=== PATIENT | female | born 1970 | race Caucasian/White ===

== ENCOUNTER 2017-03-13 02:07 | Emergency (ER) | payer OTHER ==
[2017-03-13 02:20] VITALS: BMI 34.7
--- NOTE | 2017-03-13 04:30 | DR.GENAD ---
HPI - PCP Primary Care Physician: CALISTA - Complaint/Symptoms Chief Complaint Doctors Comments: patient admits to nausea and vomiting for 3 days. She denies fever Chief Complaint:: COUGHING, PAIN IN BACK ON INSPIRATION, - Source History Provided: Patient - Mode of Arrival Mode of Arrival: Ambulatory - Timing Onset of Chief Complaint: 03/11/17 PMH - PMH Past Medical History: Yes Past Medical History: Arthritis, Asthma, GERD Past Surgical History: Yes Surgical History: Appendectomy, Cholecystectomy, Hysterectomy - Family History History of Family Medical Conditions: No - Social History Does patient currently use any type of tobacco product: No Have you used tobacco products in the last 12 months: No Type of Tobacco Use: None Does any household member use tobacco: No Alcohol Use: None Do you use any recreational Drugs:: No Lives With: Spouse Lives Where: Home - infectious screening In the last 2 months have you had wt loss of >10#?: NO Have you had fever, night sweats or hemotysis?: No Have you traveled outside the country in the last 6 months?: No Isolation: Standard ROS - Review of Systems Eyes: No Symptoms Reported ENTM: No Symptoms Reported Respiratoy: No Symptoms Reported Cardiovascular: No Symptoms Reported Gastrointestinal/Abdominal: No Symptoms Reported Genitourinary: No Symptoms Reported Neurological: No Symptoms Reported Musculoskeletal: No Symptoms Reported Integumentary: No Symptoms Reported Hematologic/Lymphatic: No Symptoms Reported Endocrine: No Symptoms Reported Psychiatric: No Symptoms Reported All Other Systems: Reviewed and Negative PE - Vital Signs Vitals: Temperature 97.9 F Pulse Rate 102 Respiratory Rate 18 O2 Sat by Pulse Oximetry 98 - General General Appearance: Alert, In No Apparent Distress - Head Head Exam: Normal Inspection, Atraumatic - Eyes Eye exam: Normal Appearance, PERRL, EOMI - ENT ENT Exam: Normal Exam External Ear Exam: Normal External Inspection TM/Canal Exam: Bilateral Normal Nose Exam: Normal Nose Exam Mouth Exam: Normal Inspection Throat Exam: Normal Inspection - Neck Neck Exam: Normal Inspection - Chest Chest Inspection: Normal Inspection - Respiratory Respiratory Exam: Normal Lung Sounds Bilat Respiratory Exam: Bilateral Clear to Auscultation - Cardiovascular Cardiovascular Exam: Regular Rate, Normal Rhythm - Abdominal Exam Abdominal Exam: Tenderness Abdominal Tenderness: Suprapubic - Extremities Extremities Exam: Normal Inspection, Full ROM - Back Back Exam: Normal Inspection, Full ROM - Neurologic Neurological Exam: Alert, Oriented X3, CN II-XII Intact - Psychiatric Psychiatric Exam: Normal Affect - Skin Skin Exam: Warm, Dry, Intact Course - Reevaluation 1st: Improved ROR - Labs Reviewed Laboratory Results Reviewed?: Yes (H Pylori positive) Result Diagrams: 03/13/17 04:40 03/13/17 04:40 Laboratory: WBC 13.2 X10^3/uL (3.6-10.0) H 03/13/17 04:40 RBC 3.80 X10^6/uL (3.5-5.4) 03/13/17 04:40 Hgb 11.7 g/dL (12.0-16.0) L 03/13/17 04:40 Hct 34.7 % (36.0-47.0) L 03/13/17 04:40 MCV 91.4 fL (80.0-100.0) 03/13/17 04:40 MCH 30.8 pg (27.0-34.0) 03/13/17 04:40 MCHC 33.7 g/dL (33.0-35.0) 03/13/17 04:40 RDW 13.4 % (11.6-16.5) 03/13/17 04:40 Plt Count 403 X10^3/uL (150.0-450.0) 03/13/17 04:40 MPV 8.5 fL (7.4-11.0) 03/13/17 04:40 Neut % 80.3 % (42.0-75.0) H 03/13/17 04:40 Lymph % 10.2 % (21.0-51.0) L 03/13/17 04:40 Y[place]y % 8.2 % (0.0-13.0) 03/13/17 04:40 Eos % 0.6 % (0.9-2.9) L 03/13/17 04:40 Baso % 0.7 % (0.2-1.0) 03/13/17 04:40 Neut # 10.6 x10^3/uL (2.2-4.8) H 03/13/17 04:40 Lymph # 1.3 X10^3/uL (1.3-2.9) 03/13/17 04:40 Y[place]y # 1.1 x10^3/uL (0.3-0.8) H 03/13/17 04:40 Eos # 0.1 x10^3/uL (0.0-0.2) 03/13/17 04:40 Baso # 0.1 X10^3/uL (0.0-0.1) 03/13/17 04:40 Absolute Nucleated RBC 0.0 /100WBC 03/13/17 04:40 Sodium 136 mmol/L (136-145) 03/13/17 04:40 Corrected Sodium TNP 03/13/17 04:40 Potassium 3.9 mmol/L (3.5-5.1) 03/13/17 04:40 Chloride 103 mmol/L (98-107) 03/13/17 04:40 Carbon Dioxide 22.7 mmol/L (21-32) 03/13/17 04:40 BUN 5 mg/dL (7-18) L 03/13/17 04:40 Creatinine 0.76 mg/dL (0.55-1.02) 03/13/17 04:40 Est GFR (MDRD) Af Amer > 60 (>60) 03/13/17 04:40 Est GFR (MDRD) Non-Af > 60 (>60) 03/13/17 04:40 Glucose 82 mg/dL (65-99) 03/13/17 04:40 Calcium 8.5 mg/dL (8.5-10.1) 03/13/17 04:40 Corrected Calcium 9.5 mg/dL (8.5-10.1) 03/13/17 04:40 Total Bilirubin 0.20 mg/dL (0.2-1.0) 03/13/17 04:40 AST 19 Units/L (15-37) 03/13/17 04:40 ALT 15 Units/L (12-78) 03/13/17 04:40 Alkaline Phosphatase 94 Units/L (46-116) 03/13/17 04:40 C-Reactive Protein 52.80 mg/L (0-3.0) H 03/13/17 04:40 Total Protein 7.6 g/dL (6.4-8.2) 03/13/17 04:40 Albumin 2.8 g/dL (3.4-5.0) L 03/13/17 04:40 Globulin 4.8 g/dL (2.5-4.5) H 03/13/17 04:40 Albumin/Globulin Ratio 0.6 Ratio (1.1-2.1) L 03/13/17 04:40 Amylase 24 Units/L (25-115) L 03/13/17 04:40 Lipase 59 Units/L (73-393) L 03/13/17 04:40 Specimen Type Catherized urine 03/13/17 05:55 Urine Color Yellow (YELLOW) 03/13/17 05:55 Urine Appearance Clear (CLEAR) 03/13/17 05:55 Urine pH 7.0 (5.0 - 8.0) 03/13/17 05:55 Ur Specific [place] 1.005 (1.000-1.030) 03/13/17 05:55 Urine Protein Negative (NEGATIVE) 03/13/17 05:55 Urine Glucose (UA) Negative (NEGATIVE) 03/13/17 05:55 Urine Ketones Negative (NEGATIVE) 03/13/17 05:55 Urine Occult Blood Negative (NEGATIVE) 03/13/17 05:55 Urine Nitrite Negative (NEGATIVE) 03/13/17 05:55 Urine Bilirubin Negative (NEGATIVE) 03/13/17 05:55 Urine Urobilinogen Normal (NORMAL) 03/13/17 05:55 Ur Leukocyte Esterase Negative (NEGATIVE) 03/13/17 05:55 Urine RBC 0-3 /HPF (NEGATIVE) 03/13/17 05:55 Urine WBC 0-3 /HPF (NEGATIVE) 03/13/17 05:55 Ur Squamous Epith Cells Rare /HPF (NEGATIVE) 03/13/17 05:55 Urine Bacteria Negative /HPF (NEGATIVE) 03/13/17 05:55 Ur Culture Indicated? No/not indicated 03/13/17 05:55 H. pylori IgG Antibody Positive (NEGATIVE) A 03/13/17 04:40 - Diagnosis Discharge Problem: Helicobacter pylori gastritis - Discharge Plan Condition: Stable - Follow ups/Referrals Follow ups/Referrals: ANATOLIY GRIGSBY [Primary Care Provider] - 3 days - Instructions
[2017-03-13] MEDS ORDERED: PHENERGAN INJ 25 MG IV ONE (04:32)
[2017-03-13] MEDS ORDERED: TORADOL 30 MG VIAL IVP ONE (04:34)
[2017-03-13] MEDS ORDERED: PHENERGAN INJ 25 MG ONE (04:35)
[2017-03-13] MEDS ORDERED: TORADOL 30 MG VIAL ONE (04:36)
[2017-03-13 04:54] LABS: BASOPHILS # (AUTO) 0.1 X10^3/uL (0.0-0.1); BASOPHILS % (AUTO) 0.7 % (0.2-1.0); EOSINOPHILS # (AUTO) 0.1 x10^3/uL (0.0-0.2); EOSINOPHILS % (AUTO) 0.6 % (0.9-2.9); HEMATOCRIT 34.7 % (36.0-47.0); HEMOGLOBIN 11.7 g/dL (12.0-16.0); LYMPHOCYTES # (AUTO) 1.3 X10^3/uL (1.3-2.9); LYMPHOCYTES % (AUTO) 10.2 % (21.0-51.0); MEAN CORPUSCULAR HEMOGLOBIN 30.8 pg (27.0-34.0); MEAN CORPUSCULAR HGB CONC 33.7 g/dL (33.0-35.0); MEAN CORPUSCULAR VOLUME 91.4 fL (80.0-100.0); MEAN PLATELET VOLUME 8.5 fL (7.4-11.0); MONOCYTES # (AUTO) 1.1 x10^3/uL (0.3-0.8); MONOCYTES % (AUTO) 8.2 % (0.0-13.0); NEUTROPHILS # (AUTO) 10.6 x10^3/uL (2.2-4.8); NEUTROPHILS % (AUTO) 80.3 % (42.0-75.0); PLATELET COUNT 403 X10^3/uL (150.0-450.0); RED CELL DISTRIBUTION WIDTH 13.4 % (11.6-16.5); WHITE BLOOD COUNT 13.2 X10^3/uL (3.6-10.0)
[2017-03-13 05:07] LABS: ALANINE AMINOTRANSFERASE 15 Units/L (12-78); ALBUMIN 2.8 g/dL (3.4-5.0); ALKALINE PHOSPHATASE 94 Units/L (46-116); AMYLASE 24 Units/L (25-115); ASPARTATE AMINO TRANSFERASE 19 Units/L (15-37); BLOOD UREA NITROGEN 5 mg/dL (7-18); CALCIUM 8.5 mg/dL (8.5-10.1); CARBON DIOXIDE 22.7 mmol/L (21-32); CHLORIDE 103 mmol/L (98-107); COR CA(FOR HYPOALB) 9.5 mg/dL (8.5-10.1); CREATININE 0.76 mg/dL (0.55-1.02); GLUCOSE 82 mg/dL (65-99); LIPASE 59 Units/L (73-393); SODIUM 136 mmol/L (136-145); TOTAL PROTEIN 7.6 g/dL (6.4-8.2); eGFR BLACK RACES > 60 (>60); eGFR NON BLACK RACES > 60 (>60)
--- NOTE | 2017-03-13 06:05 | RAD ---
HISTORY: Stomach pain, vomiting, chest pain Study: Acute abdominal series Comparison: No priors Findings: The trachea is midline. The cardiac silhouette is unremarkable. There is a focus of atelectasis or infiltrate present involving the medial basal segment of the right lower lobe. Remainder of lung fi elds are clear. There are old posttraumatic appearing changes present with fractures involving the l eft anterior 2nd and 3rd ribs which appear healed. . Flat plate and upright evaluation of the abdomen demonstrates a increased amount of stool present th roughout the colon. No bowel obstruction or perforation is seen. There is no evidence of free intrap eritoneal air or fluid. There are surgical clips from cholecystectomy.. No pathological soft tissue mass or calcification can be observed. The bony structures are grossly intact. IMPRESSION: 1. Small focus of atelectasis or infiltrate present in the medial basal segment of the right lower lobe. 2. No evidence for acute abdominal pathology identified. O Reported By:
[2017-03-13 06:10] LABS: BILIRUBIN,URINE NEGATIVE (NEGATIVE); BLOOD/HEMOGLOBIN,URINE NEGATIVE (NEGATIVE); GLUCOSE, URINE NEGATIVE (NEGATIVE); KETONES,URINE NEGATIVE (NEGATIVE); LEUKOCYTE ESTERASE ,URINE NEGATIVE (NEGATIVE); NITRITES,URINE NEGATIVE (NEGATIVE); PROTEIN,URINE NEGATIVE (NEGATIVE); UROBILINOGEN,URINE NORMAL (NORMAL)
[2017-03-13 06:18] LABS: APPEARANCE,URINE CLEAR (CLEAR); COLOR,URINE YELLOW (YELLOW)
[2017-03-13 06:19] LABS: BACTERIA,URINE NEGATIVE /HPF (NEGATIVE); RBC,URINE 0-3 /HPF (NEGATIVE); SQUAMOUS EPITHELIAL CELL,UR RARE /HPF (NEGATIVE)
== END 2017-03-13 07:31 | disposition home or self-care (01) ==
LOC: ER 02:07
DX: R11.2 Nausea with vomiting, unspecified (principal); B96.81 Helicobacter pylori [H. pylori] as the cause of diseases classified elsewhere
CPT/HCPCS: 36415; 51701; 74022; 80053; 81001; 82150; 83690; 85025; 86140; 86677; 87086; 96365; 96374; 96375; 99283; A4222; J1885; J2550

== ENCOUNTER 2017-12-21 13:22 | Emergency (ER) | payer OTHER ==
[2017-12-21 13:34] VITALS: BP 132/78; BMI 28.0
--- NOTE | 2017-12-21 16:01 | DR.GENAD ---
HPI - PCP Primary Care Physician: Dr. Ernesto Seay - HPI Comment HPI Comment: INCREASING RT LOWER BACK PAIN GOING DOWN BUTTOCK AND HIP. NO TRAUMA. - Complaint/Symptoms Chief Complaint Doctors Comments: LOWER BACK PAIN, CHRONIC BUT WORSE TODAY. Chief Complaint:: Pt has chronic right lower back pain that radiates into buttock and hip. Has had multiple steroid injections in [place] weekly-last was in August. Injections have stopped working. Pt was doing chores at home today and pain suddenly got much worse - Nurses notes reviewed Nurses Notes Review: Yes - Source History Provided: Patient - Mode of Arrival Mode of Arrival: Ambulatory - Timing Onset of Chief Complaint: 12/21/17 Came on: Suddenly - Duration Duration: Constant Duration: Hours - Severity Severity: Moderate PMH - PMH Past Medical History: Yes Past Medical History: Asthma, GERD, Seizures Past Medical History Comment: chronic back pain Past Surgical History: Yes Surgical History: Cholecystectomy, Hysterectomy - Family History History of Family Medical Conditions: No - Social History Does patient currently use any type of tobacco product: No Have you used tobacco products in the last 12 months: No Type of Tobacco Use: None Does any household member use tobacco: No Alcohol Use: None Do you use any recreational Drugs:: No Lives With: Alone Lives Where: Home - infectious screening In the last 2 months have you had wt loss of >10#?: NO Have you had fever, night sweats or hemotysis?: No Have you traveled outside the country in the last 6 months?: No Isolation: Standard ROS - Review of Systems Constitutional: No Symptoms Reported Eyes: No Symptoms Reported ENTM: No Symptoms Reported Respiratoy: No Symptoms Reported Cardiovascular: No Symptoms Reported Gastrointestinal/Abdominal: No Symptoms Reported Genitourinary: No Symptoms Reported. negative: Dysuria, Frequency, Hematuria Neurological: Paresthesia (RT LOWER EXTREMITIES) Musculoskeletal: Back Pain, Right, Hip Integumentary: No Symptoms Reported Hematologic/Lymphatic: No Symptoms Reported Endocrine: No Symptoms Reported All Other Systems: Reviewed and Negative PE - Vital Signs Vitals: Temperature 97.3 F Pulse Rate 95 Respiratory Rate 16 Blood Pressure 132/78 O2 Sat by Pulse Oximetry 99 - General Limitations: No Limitations General Appearance: Alert - Head Head Exam: Normal Inspection - Eyes Eye exam: Normal Appearance - ENT ENT Exam: Normal External Ear Exam External Ear Exam: Normal External Inspection TM/Canal Exam: Bilateral Normal Nose Exam: Normal Nose Exam Mouth Exam: Normal Inspection Throat Exam: Normal Inspection - Neck Neck Exam: Normal Inspection - Chest Chest Inspection: Symmetric Chest Wall Rise - Respiratory Respiratory Exam: Normal Lung Sounds Bilat Respiratory Exam: Bilateral Clear to Auscultation - Cardiovascular Cardiovascular Exam: Regular Rate, Normal Rhythm, Normal Heart Sounds - Abdominal Exam Abdominal Exam: Normal Bowel Sounds, Soft. negative: Tenderness - Extremities Extremities Exam: Normal Inspection - Back Back Exam: (R) CVA Tenderness - Neurologic Neurological Exam: Alert, Oriented X3 - Psychiatric Psychiatric Exam: Normal Affect, Normal Mood - Skin Skin Exam: Normal Color MDM - Differential Diagnosis Differential Diagnosis: LOWER BACK PAIN, SCIATICA. Course - Treatment Treatment: SEE ORDERS. - Education/Counseling Education/Counseling: Patient, Education Educated On: Diagnosis, Needs for Follow Up - Diagnosis Discharge Problem: Sciatica Qualifiers: Laterality: right Qualified Code(s): M54.31 - Sciatica, right side Back pain Qualifiers: Back pain location: low back pain Chronicity: acute Back pain laterality: right Sciatica presence: with sciatica Sciatica laterality: sciatica of right side Qualified Code(s): M54.41 - Lumbago with sciatica, right side - Discharge Plan Disposition: 01 HOME, SELF-CARE Condition: Stable - Follow ups/Referrals Follow ups/Referrals: NFD,None [Primary Care Provider] - 3 days - Instructions Instructions: Sciatica, [id number], Back Pain, Adult, [id number] Additional Instructions: RETURN TO ED IF WORSE.
[2017-12-21] MEDS ORDERED: PHENERGAN INJ 25 MG IM ONE (16:13)
[2017-12-21] MEDS ORDERED: DEMEROL INJ IM ONE (16:13)
[2017-12-21] MEDS ORDERED: PHENERGAN INJ 25 MG ONE (16:32)
[2017-12-21] MEDS ORDERED: DEMEROL INJ ONE (16:33)
== END 2017-12-21 16:52 | disposition home or self-care (01) ==
LOC: ER 13:42
DX: M54.31 Sciatica, right side (principal); M54.41 Lumbago with sciatica, right side
CPT/HCPCS: 96372; 99282; J2175; J2550